=== PATIENT | male | born 2000 | race African-American/Black ===

== ENCOUNTER 2022-12-05 09:35 | Emergency (ER) | payer OTHER ==
[~2022-12-05] VITALS: Ht 180.3 cm; Wt 79.4 kg
[2022-12-05 09:43] VITALS: BP 133/83
[2022-12-05] MEDS ORDERED: PERM60CR19 TP (11:36)
== END 2022-12-05 11:47 | disposition home or self-care (01) ==
LOC: EMS 09:39
DX: B86 Scabies (principal); F12.90 Cannabis use, unspecified, uncomplicated
CPT/HCPCS: 99282; Z7502